=== PATIENT | female | born 1950 | race Caucasian/White ===

== ENCOUNTER → 2017-10-02 09:34 | Outpatient (CLI) | payer MEDICARE, MEDICAID, SELFPAY ==
--- NOTE | 2017-10-02 09:44 | US_ITS ---
US organ site (thyroid), US biopsy (core) HISTORY: Left-sided thyroid nodule reported to have increased in size on outside ultrasound. Prior biopsy of this nodule ITS.REASON: LEFT SIDE THYROID NODULE ORDERING PHYSICIAN: Karel Arnold MD PATIENT AGE: 66 years Prebiopsy ultrasound: Dominant nodule in the lower pole on the left was confirmed by ultrasound measuring approximately 2 cm. TECHNIQUE: Following obtaining informed consent, using aseptic technique and local anesthesia with buffered lidocaine, fine-needle aspiration was performed of the lower pole nodule of interest using sonographic guidance. 3 passes were made into the nodule with a 25-gauge needle. Specimen was given to cytology. The patient tolerated the procedure well without evidence of immediate complications and left the ultrasound suite in stable condition. CYTOLOGY:Pending IMPRESSION: Uneventful ultrasound-guided fine-needle aspiration of lower pole nodule on the left. Cytology pending
--- NOTE | 2017-10-02 09:44 | US_ITS ---
US organ site (thyroid), US biopsy (core) HISTORY: ITS.REASON: RT SIDE THYROID NODDULE ORDERING PHYSICIAN: Karel Arnold MD PATIENT AGE: 66 years Prebiopsy ultrasound: COMPARISON made to prior ultrasound of 06/25/2016. An outside ultrasound reported that the upper pole nodule has increased in size. Prebiopsy ultrasound confirms presence of her right upper pole dominant nodule. TECHNIQUE: Following obtaining informed consent, using aseptic technique and local anesthesia with buffered lidocaine, fine-needle aspiration was performed of the dominant upper pole nodule of interest using sonographic guidance. 3 passes were made into the nodule with a 25-gauge needle. Specimen was given to cytology. The patient tolerated the procedure well without evidence of immediate complications and left the ultrasound suite in stable condition. CYTOLOGY:Pending IMPRESSION: Uneventful ultrasound-guided fine-needle aspiration of dominant nodule in the upper pole. Cytology pending
== END ==
PROVIDERS: PCP Internal Medicine; Visit Provider Otolaryngology
DX: D34 Benign neoplasm of thyroid gland (principal)
CPT/HCPCS: 10022 ×2; 76536; 76942; 88173